=== PATIENT | male | born 1950 | race Caucasian/White ===

== ENCOUNTER 2022-08-07 15:29 | Emergency (ER) | payer MEDICAID ==
[~2022-08-07] VITALS: Ht 165.1 cm; Wt 93.0 kg
[2022-08-07 15:34] VITALS: BP 126/80
[2022-08-07] MEDS ORDERED: ACETAMINOPHEN 325MG TABLET PO ONE (16:00)
[2022-08-07] MEDS ORDERED: LIDOCAINE HCL/PF 1% 10 MG/ML 5ML VIAL INFIL ONE (16:00)
[2022-08-07] MEDS ORDERED: BACITRACIN ZINC OINT UDPKT TOP ONE (16:00)
[2022-08-07] MEDS ORDERED: IBUP-2028 MT (17:24)
== END 2022-08-07 18:02 | disposition home or self-care (01) ==
LOC: ER 15:29
DX: S61.214A Laceration without foreign body of right ring finger without damage to nail, initial encounter (principal); X58.XXXA Exposure to other specified factors, initial encounter; Y93.89 Activity, other specified; Y92.89 Other specified places as the place of occurrence of the external cause; Y99.8 Other external cause status; I10 Essential (primary) hypertension
CPT/HCPCS: 12001; 73130; 99283; Z7610